=== PATIENT | female | born 1930 | race Caucasian/White ===

== ENCOUNTER 2016-10-01 14:39 | Emergency (ER) | payer OTHER ==
[2016-10-01 15:11] VITALS: BP 140/70; PULSE 87; TEMP 97.7; BMI 27.4
[2016-10-01] MEDS ORDERED: ASPIRIN 81 MG CHEWABLE TABLETS PO ONE (15:12)
--- NOTE | 2016-10-01 15:15 | PDOC ---
Rapid Medical Evaluation Time Seen by Provider: 10/01/16 15:09 Medical Evaluation: Allergies Allergy/AdvReac Type Severity Reaction Status Date / Time No Known Allergies Allergy Verified 01/07/16 17:57 10/01/16 15:[address] Valentin office for new notesd EKG changes- no chest pain / palpitation/ SOB/ diaphoresis 07/29 NSR with no changes. Todays showed at office= RBBB and Twave changes. VSS, assymptomatic. 10/01/16 15:14
[2016-10-01 16:01] LABS: BASOPHIL 0.8 % (0-2.0); EOSINOPHIL 1.7 % (0-4.5); MCH 31.8 pg (25.7-33.7); MCHC 33.6 g/dl (32.0-36.0); MEAN CELL VOLUME 94.7 fl (80-96); MEAN PLT VOLUME 9.2 fl (7.5-11.1); NEUTROPHILS 59.2 % (42.8-82.8); PLATELET COUNT 208 K/MM3 (134-434); WHITE BLOOD COUNT 9.6 K/mm3 (4.0-10.0)
[2016-10-01 16:16] LABS: ALBUMIN 4.3 g/dl (3.4-5.0); ANION GAP 12 (8-16); BILIRUBIN,TOTAL 0.2 mg/dL (0.2-1.0); CALCIUM 9.4 mg/dL (8.5-10.1); CO2 29 mmol/L (21-32); CREATININE 0.8 mg/dL (0.55-1.02); GLUCOSE,RANDOM 132 mg/dL (74-106); SGOT/AST 37 U/L (15-37); SGPT/ALT 53 U/L (12-78); TOT PROT 7.6 g/dl (6.4-8.2)
[2016-10-01 16:19] LABS: ALK PHOS 97 U/L (45-117); TROPONIN I < 0.02 ng/ml (0.00-0.05)
[2016-10-01 16:44] LABS: URINE APPEARANCE CLEAR; URINE BILIRUBIN NEGATIVE (NEGATIVE); URINE BLOOD NEGATIVE (NEGATIVE); URINE COLOR STRAW; URINE GLUCOSE (UA) NEGATIVE (NEGATIVE); URINE KETONE NEGATIVE (NEGATIVE); URINE LEUK ESTERASE 1+ (NEGATIVE); URINE NITRITE NEGATIVE (NEGATIVE); URINE PROTEIN NEGATIVE (NEGATIVE); URINE UROBILINOGEN NEGATIVE E.U./dl (0.2-1.0)
--- NOTE | 2016-10-01 17:14 | PDOC ---
History of Present Illness <Guido Rocha - Last Filed: 10/01/16 17:51> - General History Source: Patient, Family, Primary Care Provider Exam Limitations: No Limitations <Franko Sood - Last Filed: 10/01/16 18:05> - General Stated Complaint: (PCP SENT) EVALUATION Time Seen by Provider: 10/01/16 15:09 - History of Present Illness Initial Comments: 10/01/16 17:32 The patient is a 86 year old female presenting with her family, with a significant past medical history of diabetes, HTN and HLD, who presents to the emergency department with EKG changes onset today. The patient was at her PMDs office getting prepped for cataracts surgery on 10/14/2016, when an EKG showed changes from her prior EKG on 07/2016. On 07/2016 the EKG showed NSR with no changes. Today at office showed at RBBB and Twave changes, VSS, assymptomatic. The patient denies chest pain, palpitations, shortness of breath, headache and dizziness. Denies fever, chills, nausea, vomit, diarrhea and constipation. Denies dysuria, frequency, urgency and hematuria. Allergies: None Past surgical history: Left breast cyst removal Social history: No alcohol, tobacco or drug use PCP - Dr. Arthur Raygoza (Franko Sood) Past History - Past Medical History Diabetes: Yes HTN: Yes Hypercholesterolemia: Yes - Psycho/Social/Smoking Cessation Hx Anxiety: No Suicidal Ideation: No Smoking History: Never smoked Hx Alcohol Use: No Drug/Substance Use Hx: No Substance Use Type: None <Guido Rocha - Last Filed: 10/01/16 17:51> <Franko Sood - Last Filed: 10/01/16 18:05> - Past Medical History Allergies/Adverse Reactions: Allergies Allergy/AdvReac Type Severity Reaction Status Date / Time No Known Allergies Allergy Verified 10/01/16 15:11 Home Medications: Ambulatory Orders Amlodipine Besylate [Norvasc -] 0 mg PO DAILY 01/07/16 Atorvastatin Ca [Lipitor] 0 mg PO HS 01/07/16 Carboxymethylcellulose Sodium [Lubricant Eye Drops] 30 ml OS PRN #1 drops Eye Patch 1 each MC HS #1 each 01/07/16 Furosemide [Lasix -] 0 mg PO DAILY 01/07/16 Losartan Potassium [Cozaar] 0 mg PO DAILY 01/07/16 Prednisone [Deltasone -] 60 mg PO DAILY #12 tablet 01/07/16 Review of Systems <Natali Rochais - Last Filed: 10/01/16 17:51> - Review of Systems Able to Perform ROS?: Yes <Franko Sood - Last Filed: 10/01/16 18:05> - Review of Systems Comments:: 10/01/16 17:32 GENERAL/CONSTITUTIONAL: No fever or chills. No weakness. HEAD, EYES, EARS, NOSE AND THROAT: No change in vision. No ear pain or discharge. No sore throat. CARDIOVASCULAR: No chest pain or shortness of breath RESPIRATORY: No cough, wheezing, or hemoptysis. GASTROINTESTINAL: No nausea, vomiting, diarrhea or constipation. GENITOURINARY: No dysuria, frequency, or change in urination. MUSCULOSKELETAL: No joint or muscle swelling or pain. No neck or back pain. SKIN: No rash NEUROLOGIC: No headache, vertigo, loss of consciousness, or change in strength/ sensation. ENDOCRINE: No increased thirst. No abnormal weight change HEMATOLOGIC/LYMPHATIC: No anemia, easy bleeding, or history of blood clots. ALLERGIC/IMMUNOLOGIC: No hives or skin allergy. (Franko Sood) *Physical Exam <JosefinaGuido - Last Filed: 10/01/16 17:51> <Franko Sood - Last Filed: 10/01/16 18:05> - Vital Signs Last Vital Signs Temp Pulse Resp BP Pulse Ox 97.7 F 87 20 140/70 96 10/01/16 15:06 10/01/16 15:06 10/01/16 15:06 10/01/16 15:06 10/01/16 15:06 - Physical Exam Comments: 10/01/16 17:32 GENERAL: Awake, alert, and fully oriented, in no acute distress HEAD: No signs of trauma, normocephalic, atraumatic EYES: PERRLA, EOMI, sclera anicteric, conjunctiva clear ENT: Auricles normal inspection, hearing grossly normal, nares patent, oropharynx clear without exudates. Moist mucosa NECK: Normal ROM, supple, no lymphadenopathy, JVD, or masses LUNGS: No distress, speaks full sentences, clear to auscultation bilaterally HEART: Regular rate and rhythm, normal S1 and S2, no murmurs, rubs or gallops, peripheral pulses normal and equal bilaterally. ABDOMEN: Soft, nontender, normoactive bowel sounds. No guarding, no rebound. No masses EXTREMITIES: Normal inspection, Normal range of motion, no edema. No clubbing or cyanosis. NEUROLOGICAL: Cranial nerves II through XII grossly intact. Normal speech, normal gait, no focal sensorimotor deficits SKIN: Warm, Dry, normal turgor, no rashes or lesions noted. (Franko Sood) Heart Score/ECG Review #1 ECG reviewed & interpreted by me at: 18:04 <Franko Sood - Last Filed: 10/01/16 18:05> #1 10/01/16 15:26 Ventricular rate: 82 bpm Normal sinus rhythm Incomplete right bundle branch block (Franko Sood) ED Treatment Course - LABORATORY CBC & Chemistry Diagram: 10/01/16 15:45 10/01/16 15:45 <Guido Rocha - Last Filed: 10/01/16 17:51> - LABORATORY CBC & Chemistry Diagram: 10/01/16 15:45 10/01/16 15:45 <Franko Sood - Last Filed: 10/01/16 18:05> - ADDITIONAL ORDERS Additional order review: Laboratory Results 10/01/16 10/01/16 10/01/16 15:49 15:45 15:45 INR Cancelled Sodium 139 Potassium 3.8 Chloride 98 Carbon Dioxide 29 Anion Gap 12 BUN 22 H D Creatinine 0.8 D Creat Clearance w eGFR > 60 Random Glucose 132 H Calcium 9.4 Magnesium 2.0 Total Bilirubin 0.2 D AST 37 D ALT 53 D Alkaline Phosphatase 97 D Creatine Kinase 68 Troponin I < 0.02 Total Protein 7.6 Albumin 4.3 Urine Color Straw Urine Appearance Clear Urine pH 5.0 Ur Specific Concepcion 1.010 Urine Protein Negative Urine Glucose (UA) Negative Urine Ketones Negative Urine Blood Negative Urine Nitrite Negative Urine Bilirubin Negative Urine Urobilinogen Negative Ur Leukocyte Esterase 1+ H 10/01/16 15:45 RBC 4.46 MCV 94.7 MCHC 33.6 RDW 13.0 MPV 9.2 Neutrophils % 59.2 Lymphocytes % 29.8 Monocytes % 8.5 Eosinophils % 1.7 Basophils % 0.8 - Medications Given in the ED: ED Medications Discontinued Medications Generic Name Dose Route Start Last Admin Trade Name Roseline PRN Reason Stop Dose Admin Aspirin 162 mg 10/01/16 15:12 10/01/16 17:48 Asa - PO 10/01/16 15:13 162 mg ONCE ONE Administration Medical Decision Making <Guido Rocha - Last Filed: 10/01/16 17:51> <Franko Sood - Last Filed: 10/01/16 18:05> - Medical Decision Making 10/01/16 18:00 Patient is an 86-year-old female with history of diabetes, hypertension, hyperlipidemia who was referred to the ER for nonspecific EKG changes without associated symptomatology. Patient denies chest pain/shortness of breath/ diaphoresis/dyspnea on exertion/PND/orthopnea/lower extremity edema. In the ER, patient is asymptomatic and resting comfortably. I do not suspect ACS or PE at this time. I discussed the case with Dr. Valentin and he agrees. Will discharge. (Guido Rocha) 10/01/16 17:33 Dr. Posada was consulted regarding the patient at 5:24pm [phone] (Franko Sood) *DC/Admit/Observation/Transfer <Guido Rocha - Last Filed: 10/01/16 17:51> <Franko Sood - Last Filed: 10/01/16 18:05> Diagnosis at time of Disposition: Nonspecific ST-T wave electrocardiographic changes - Discharge Dispostion Disposition: HOME Condition at time of disposition: Stable - Referrals Referrals: Arthur Posada MD [Primary Care Provider] - - Patient Instructions Printed Discharge Instructions: Electrocardiogram - Attestations Scribe Attestion: 10/01/16 17:32 Documentation prepared by Franko Sood, acting as coroner/medical examiner for Guido Rocha MD (Franko Sood) Physician Attestion: 10/01/16 17:51 The documentation was prepared by the scribe under my direct supervision. I have reviewed the documentation which correctly represents the findings, medical decision-making and critical action taken by me. (Guido Rocha)
[2016-10-01] MEDS ORDERED: ASPIRIN 81 MG CHEWABLE TABLETS ONE (17:46)
[2016-10-01 19:42] LABS: URINE MUCUS RARE; URINE RBC 1 /hpf (0-3); URINE WBC 6 /hpf (3-5)
--- NOTE | 2016-10-02 17:09 | EKG ---
Test Reason : Blood Pressure : / mmHG Vent. Rate : 083 BPM Atrial Rate : 083 BPM P-R Int : 152 ms QRS Dur : 110 ms QT Int : 398 ms P-R-T Axes : 045 044 -05 degrees QTc Int : 467 ms POOR DATA QUALITY, INTERPRETATION MAY BE ADVERSELY AFFECTED NORMAL SINUS RHYTHM INCOMPLETE RIGHT BUNDLE BRANCH BLOCK T WAVE ABNORMALITY, CONSIDER ANTERIOR ISCHEMIA ABNORMAL ECG WHEN COMPARED WITH ECG OF 29-OCT-2005 21:08, INCOMPLETE RIGHT BUNDLE BRANCH BLOCK IS NOW PRESENT Confirmed by MÓNICA GARCIA MD ([id number]) on 10/02/2016 5:09:29 PM Referred By: Confirmed By:MÓNICA GARCIA MD
== END 2016-10-01 17:55 | disposition home or self-care (01) ==
LOC: JER 14:39
DX: R94.31 Abnormal electrocardiogram [ECG] [EKG] (principal); E11.9 Type 2 diabetes mellitus without complications; I10 Essential (primary) hypertension; E78.5 Hyperlipidemia, unspecified
CPT/HCPCS: 36415; 80053; 81003; 81015; 82550; 83735; 84484; 85025; 93005; 93010; 99282-25

== ENCOUNTER 2016-12-05 12:02 | Inpatient (IN) | payer OTHER ==
--- NOTE | 2016-12-05 14:12 | PDOC ---
History of Present Illness - General Chief Complaint: Respiratory Stated Complaint: COUGH, PAIN (PCP SENT) - History of Present Illness Initial Comments: 12/05/16 14:10 86 yo F with h/o HTN DM here wtih coughing started last night. no fever. does have chest pain with coughing. has nausea, no vomiting. no fever, does have chills. no diarreha. no other complaints. cough productive of yellow phlegm. no mod factors. on exam awake, alert. bilat lung wheezing and crackles. rhonchorous breath sounds. heart RRR no mr/g/. abd soft NT ND. ext WWP no edema. plan: differential pna, bronchitis. anemia, sepsis. plan labs ekg cxr duoneb. reassess. 12/05/16 14:39 Past History - Past Medical History Allergies/Adverse Reactions: Allergies Allergy/AdvReac Type Severity Reaction Status Date / Time No Known Allergies Allergy Verified 12/05/16 12:04 Home Medications: Ambulatory Orders Amlodipine Besylate [Norvasc -] 0 mg PO DAILY 01/07/16 Atorvastatin Ca [Lipitor] 0 mg PO HS 01/07/16 Carboxymethylcellulose Sodium [Lubricant Eye Drops] 30 ml OS PRN #1 drops Eye Patch 1 each MC HS #1 each 01/07/16 Furosemide [Lasix -] 0 mg PO DAILY 01/07/16 Losartan Potassium [Cozaar] 0 mg PO DAILY 01/07/16 Prednisone [Deltasone -] 60 mg PO DAILY #12 tablet 01/07/16 Asthma: No Diabetes: Yes (NIDDM) HTN: Yes Hypercholesterolemia: Yes - Psycho/Social/Smoking Cessation Hx Anxiety: No Suicidal Ideation: No Smoking History: Never smoked Have you smoked in the past 12 months: No Information on smoking cessation initiated: No Hx Alcohol Use: No Drug/Substance Use Hx: No Substance Use Type: None Review of Systems - Review of Systems Constitutional: No: Chills, Diaphoresis, Fever Respiratory: Yes: Cough, Shortness of Breath, Wheezing, Productive cough Cardiac (ROS): Yes: Chest Pain. No: Edema, Irregular Heart Rate : No: Burning, Dysuria, Discharge, Pain, Urgency Musculoskeletal: No: Back Pain All Other Systems: Reviewed and Negative *Physical Exam - Vital Signs Last Vital Signs Temp Pulse Resp BP Pulse Ox 98.0 F 86 18 146/68 100 12/05/16 12:04 12/05/16 12:04 12/05/16 12:04 12/05/16 12:04 12/05/16 12:04 - Physical Exam General Appearance: Yes: Nourished HEENT: positive: Normal Voice Neck: positive: Trachea midline Respiratory/Chest: positive: Wheezing, Other (bilateral wheezing, crackles at bases). negative: Respiratory Distress Cardiovascular: positive: Regular Rhythm, Regular Rate, S1, S2. negative: Edema , JVD Vascular Pulses: Dorsalis-Pedis (R): 2+, Doralis-Pedis (L): 2+ Gastrointestinal/Abdominal: positive: Normal Bowel Sounds. negative: Tender Musculoskeletal: negative: CVA Tenderness Integumentary: positive: Normal Color, Dry, Warm Neurologic: positive: Fully Oriented, Alert, Normal Mood/Affect ED Treatment Course - LABORATORY CBC & Chemistry Diagram: 12/05/16 16:06 12/05/16 16:06 Medical Decision Making - Medical Decision Making 12/05/16 14:39 86 yo F with h/o HTN DM here wtih coughing started last night. no fever. does have chest pain with coughing. has nausea, no vomiting. no fever, does have chills. no diarreha. no other complaints. cough productive of yellow phlegm. no mod factors. on exam awake, alert. bilat lung wheezing and crackles. rhonchorous breath sounds. heart RRR no mr/g/. abd soft NT ND. ext WWP no edema. plan: differential pna, bronchitis. anemia, sepsis. plan labs ekg cxr duoneb. reassess. 12/05/16 18:28 pt cxr negative. wbc normal. but lactate elevated 3.7. pt improved clinically with nebs. oxygen sat improved from 92% to 97%. d/w dr. Diaz, will admit pt. *DC/Admit/Observation/Transfer Diagnosis at time of Disposition: Bronchitis, Hypoxia - Discharge Dispostion Admit: Yes - Referrals Referrals: Arthur Posada MD [Primary Care Provider] -
[2016-12-05] MEDS ORDERED: ALBUTEROL SO4 2.5/IPRATROPIUM 0.5 INH SOL 3 ML VIAL.NEB. NEB ONE ×2 (14:17→14:23)
[2016-12-05] MEDS ORDERED: LEVOFLOXACIN 750 MG IVPB 150 ML IVPB ONE ×2 (15:51→16:31)
[2016-12-05 16:48] LABS: URINE APPEARANCE CLEAR; URINE BILIRUBIN NEGATIVE (NEGATIVE); URINE BLOOD NEGATIVE (NEGATIVE); URINE COLOR COLORLESS; URINE GLUCOSE (UA) NEGATIVE (NEGATIVE); URINE KETONE NEGATIVE (NEGATIVE); URINE NITRITE NEGATIVE (NEGATIVE); URINE PROTEIN NEGATIVE (NEGATIVE); URINE UROBILINOGEN NEGATIVE E.U./dl (0.2-1.0)
[2016-12-05 16:53] LABS: BASOPHIL 0.8 % (0-2.0); EOSINOPHIL 2.6 % (0-4.5); MCH 30.7 pg (25.7-33.7); MCHC 32.5 g/dl (32.0-36.0); MEAN CELL VOLUME 94.4 fl (80-96); MEAN PLT VOLUME 9.3 fl (7.5-11.1); NEUTROPHILS 43.9 % (42.8-82.8); PLATELET COUNT 195 K/MM3 (134-434); RDW 12.6 % (11.6-15.6); URINE LEUK ESTERASE TRACE (NEGATIVE); WHITE BLOOD COUNT 4.2 K/mm3 (4.0-10.0)
[2016-12-05 16:56] LABS: URINE BACTERIA RARE /hpf (NONE SEEN); URINE RBC <1 /hpf (0-3); URINE WBC 4 /hpf (3-5)
[2016-12-05 17:26] LABS: ANION GAP 13 (8-16); CO2 27 mmol/L (21-32); COCKROFT - GAULT 70.6775; CREATININE 0.7 mg/dL (0.55-1.02); GLUCOSE,RANDOM 122 mg/dL (74-106); SGOT/AST 42 U/L (15-37); SGPT/ALT 57 U/L (12-78)
[2016-12-05 17:28] LABS: ALK PHOS 100 U/L (45-117); BILIRUBIN,TOTAL 0.3 mg/dL (0.2-1.0); TOT PROT 7.4 g/dl (6.4-8.2)
[2016-12-05] MEDS ORDERED: SODIUM CHLORIDE 0.9% 1000 ML INFUS.BAG IV ONE (17:46)
[2016-12-06] MEDS: ALBUTEROL SO4 0.083% IH SOL 2.5 MG/3 ML VIAL.NEB. NEB SCH ×4 (00:51→22:42)
[2016-12-06] MEDS ORDERED: amLODIPine BESYLATE 5 MG TABLET (FP) PO ONE (02:45)
[2016-12-06 10:20] LABS: ALBUMIN 3.7 g/dl (3.4-5.0); ALK PHOS 91 U/L (45-117); ANION GAP 8 (8-16); BILIRUBIN,TOTAL 0.4 mg/dL (0.2-1.0); CO2 28 mmol/L (21-32); CREATININE 0.6 mg/dL (0.55-1.02); GLUCOSE,RANDOM 101 mg/dL (74-106); SGOT/AST 36 U/L (15-37); SGPT/ALT 47 U/L (12-78); TOT PROT 6.7 g/dl (6.4-8.2)
[2016-12-06] MEDS: LEVOFLOXACIN 500 MG IVPB 100 ML IVPB SCH (11:36)
[2016-12-06] MEDS: METOPROLOL SUCCINATE 25 MG TAB.SR.24H (FP) PO SCH (11:37)
[2016-12-06] MEDS: VALSARTAN 160 MG TABLET (UD) PO SCH (11:37)
[2016-12-06] MEDS ORDERED: PNEUMOC 13-VAL CONJ-DIP CRM/PF 0.5 ML DISP.SYRIN IM ONE (12:00)
--- NOTE | 2016-12-06 14:26 | HP ---
Admitting History and Physical - Admission Chief Complaint: Cough and wheezing History of Present Illness: 86 y/o hyspanic female who developed severe cough and wheezing and could not sleep due to constant cough.She was examined in my office lungs showed bilateral rales and occasional wheezing and was referred to ED. She was treated with IV Levaquin and given inhalation treatment. She is a known diabetic and hypertensive. History Source: Patient Limitations to Obtaining History: No Limitations - Past Medical History USER INTERFACE ENGINEER: Yes: Other (Lyons's palsy) Cardiovascular: Yes: HTN, Hyperlipdemia Musculoskeletal: Yes: Other (fracture left humeral head) Endocrine: Yes: Diabetes Mellitus - Past Surgical History Past Surgical History: Yes: Breast Biopsy - Smoking History Smoking history: Never smoked Have you smoked in the past 12 months: No - Alcohol/Substance Use Hx Alcohol Use: No - Social History Usual Living Arrangement: Yes: With Spouse ADL: Independent History of Recent Travel: No Home Medications - Allergies Allergies/Adverse Reactions: Allergies Allergy/AdvReac Type Severity Reaction Status Date / Time No Known Allergies Allergy Verified 12/05/16 12:04 - Home Medications Home Medications: Ambulatory Orders Amlodipine Besylate [Norvasc -] 5 mg PO DAILY 01/07/16 Atorvastatin Ca [Lipitor] 10 mg PO HS 01/07/16 Aspirin [Aspirin EC] 81 mg PO DAILY 12/06/16 Losartan/Hydrochlorothiazide [Losartan-Hctz 100-12.5 mg Tab] 1 each PO DAILY Metformin HCl [Metformin HCl ER] 500 mg PO BID 12/06/16 Metoprolol Succinate [Toprol Xl -] 25 mg PO DAILY 12/06/16 Review of Systems - Review of Systems Eyes: reports: No Symptoms HENT: reports: No Symptoms Neck: reports: No Symptoms Cardiovascular: reports: No Symptoms Respiratory: reports: Cough, Wheezing Gastrointestinal: reports: No Symptoms Genitourinary: reports: No Symptoms Breasts: reports: No Symptoms Reported Musculoskeletal: reports: No Symptoms Integumentary: reports: No Symptoms Neurological: reports: No Symptoms Endocrine: reports: No Symptoms Hematology/Lymphatic: reports: No Symptoms Psychiatric: reports: No Symptoms Physical Examination Vital Signs: Vital Signs Temperature 98.2 F 12/06/16 09:49 Pulse Rate 82 12/06/16 09:49 Respiratory Rate 18 12/06/16 09:49 Blood Pressure 156/64 12/06/16 09:49 O2 Sat by Pulse Oximetry (%) 94 L 12/06/16 02:00 Constitutional: Yes: No Distress, Calm Eyes: Yes: Conjunctiva Clear, EOM Intact HENT: Yes: WNL Neck: Yes: Supple Cardiovascular: Yes: Regular Rate and Rhythm, S1, S2 Respiratory: Yes: Regular, Rales Gastrointestinal: Yes: Normal Bowel Sounds, Soft Renal/: Yes: WNL Breast(s): Yes: WNL Musculoskeletal: Yes: WNL Extremities: Yes: WNL Edema: No Peripheral Pulses WNL: Yes Integumentary: Yes: WNL Neurological: Yes: Alert, Oriented ...Motor Strength: WNL Psychiatric: Yes: Alert, Oriented Labs: CBC, BMP 12/06/16 07:30 Imaging - Results Chest X-ray: Report Reviewed, Image Reviewed EKG: Pending Problem List - Problems (1) Bronchitis Assessment/Plan: Being treated with IV Levaquin and inhalation treatment and improving Code(s): J40 - BRONCHITIS, NOT SPECIFIED ACUTE OR CHRONIC (2) Diabetes Assessment/Plan: On admission lactic acid was elevated and Metformin was D/C Will observe off oral agents Code(s): E11.9 - TYPE 2 DIABETES MELLITUS WITHOUT COMPLICATIONS (3) Hypertension complicating diabetes Code(s): E11.59 - 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 Will continue present regimen next 24 hours and discharge if stable. Diabetes: FBS was 101 today off Metformin.As lactic acid was elevated on admission will switch to PO Glipizide as out patient
[2016-12-06] MEDS ORDERED: ATORVASTATIN CA 10 MG TABLET (FP) PO SCH (22:00)
[2016-12-07] MEDS: ALBUTEROL SO4 0.083% IH SOL 2.5 MG/3 ML VIAL.NEB. NEB SCH ×2 (06:37→15:11)
[2016-12-07] MEDS: LEVOFLOXACIN 500 MG IVPB 100 ML IVPB SCH (09:20)
[2016-12-07] MEDS: VALSARTAN 160 MG TABLET (UD) PO SCH (09:20)
[2016-12-07] MEDS: METOPROLOL SUCCINATE 25 MG TAB.SR.24H (FP) PO SCH (09:20)
[2016-12-07] MEDS ORDERED: amLODIPine BESYLATE 5 MG TABLET (FP) PO SCH (10:00)
[2016-12-07 14:33] VITALS: BP 135/50; PULSE 85; TEMP 98.4
--- NOTE | 2016-12-07 15:39 | DS ---
Physical Examination Vital Signs: Vital Signs Temperature 98.4 F 12/07/16 14:31 Pulse Rate 85 12/07/16 14:31 Respiratory Rate 22 12/07/16 14:31 Blood Pressure 135/50 12/07/16 14:31 O2 Sat by Pulse Oximetry (%) 96 12/06/16 22:00 Findings/Remarks: Continue to cough but without any wheezing or fever or chest pain Patient seen and examined Constitutional: Yes: No Distress, Calm Eyes: Yes: Conjunctiva Clear, EOM Intact HENT: Yes: WNL Neck: Yes: Supple Cardiovascular: Yes: Regular Rate and Rhythm, S1, S2 Respiratory: Yes: Regular, CTA Bilaterally Gastrointestinal: Yes: Normal Bowel Sounds, Soft Renal/: Yes: WNL Breast(s): Yes: WNL Musculoskeletal: Yes: WNL Extremities: Yes: WNL Edema: No Peripheral Pulses WNL: Yes Integumentary: Yes: WNL Neurological: Yes: Alert, Oriented ...Motor Strength: WNL Psychiatric: Yes: Alert, Oriented Labs: CBC, BMP 12/06/16 07:30 Discharge Summary Reason For Visit: HYPOXIA; BRONCHITIS Current Active Problems Bronchitis (Acute) Diabetes (Acute) Hyperlipidemia (Acute) Hypertension complicating diabetes (Acute) Hypoxia (Acute) Hospital Course: Known diabetic who came to the emergency with persistent cough and wheezing and could not sleep all night due to persistent cough. She had been started on Zithromax as outpatient but still continued to be symptomatic.In the ED she she was found to have minimakl wheezing, without leukocytosis and was started on IV Levaquin and inhalation treatment and was admitted. She is a known diabetic and hypertensive. She continued to improve and was discharged on PO Levaquin. Metformin was discontinued as the lactic acid was elevated during admission . Her BGM was in the 150 range and she is being started on Glimepiride o.5 mg and will be titrated upward. She will be followed in my office. Condition: Improved - Instructions Referrals: Arthur Posada MD [Primary Care Provider] - - Home Medications Comprehensive Discharge Medication List: Ambulatory Orders Amlodipine Besylate [Norvasc -] 5 mg PO DAILY 01/07/16 Atorvastatin Ca [Lipitor] 10 mg PO HS 01/07/16 Aspirin [Aspirin EC] 81 mg PO DAILY 12/06/16 Losartan/Hydrochlorothiazide [Losartan-Hctz 100-12.5 mg Tab] 1 each PO DAILY Metoprolol Succinate [Toprol XL -] 25 mg PO DAILY 12/06/16 Amlodipine Besylate [Norvasc -] 5 mg PO DAILY tablet 12/07/16 Atorvastatin Ca [Lipitor] 10 mg PO HS tablet 12/07/16
--- NOTE | 2016-12-07 22:26 | EKG ---
Test Reason : Blood Pressure : / mmHG Vent. Rate : 084 BPM Atrial Rate : 084 BPM P-R Int : 154 ms QRS Dur : 112 ms QT Int : 382 ms P-R-T Axes : 062 062 -11 degrees QTc Int : 451 ms POOR DATA QUALITY, INTERPRETATION MAY BE ADVERSELY AFFECTED NORMAL SINUS RHYTHM INCOMPLETE RIGHT BUNDLE BRANCH BLOCK NONSPECIFIC T WAVE ABNORMALITY ABNORMAL ECG WHEN COMPARED WITH ECG OF 01-OCT-2016 15:26, NO SIGNIFICANT CHANGE WAS FOUND Confirmed by SARTHAK CARLSON MD ([id number]) on 12/07/2016 10:26:22 PM Referred By: Confirmed By:SARTHAK CARLSON MD
== END 2016-12-07 16:39 | disposition home or self-care (01) | DRG 202 ==
LOC: JER 12:02 → JERBED 18:27 → J5S 12-06 01:13
PROVIDERS: ADMIT Internal Medicine Hematology & Oncology; ATTEND Internal Medicine Hematology & Oncology
DX: J20.9 Acute bronchitis, unspecified (principal); E87.2 Acidosis; E11.9 Type 2 diabetes mellitus without complications; E78.5 Hyperlipidemia, unspecified; I10 Essential (primary) hypertension
CPT/HCPCS: 36415; 71020-TC; 80053; 81003; 81015; 83605; 85025; 86157; 87040; 87254; 87804; 90670; 93005; 93010; 94640; 99285-25

== ENCOUNTER 2018-07-08 10:00 | Emergency (ER) | payer OTHER ==
[2018-07-08 10:23] VITALS: TEMP 98.7; BMI 31.1
--- NOTE | 2018-07-08 10:42 | PDOC ---
History of Present Illness - General Chief Complaint: Cold Symptoms Stated Complaint: COUGH Time Seen by Provider: 07/08/18 10:42 History Source: Patient Exam Limitations: No Limitations - History of Present Illness Initial Comments: 07/08/18 11:10 Ms Gleason is a 87 YOF with h/o HTN, HLD, DM2 p/w 1 week history of chest cold, nasal congestion and productive cough. Initially with fevers, since resolved Tolerating PO intake. No travel history. Initially sick contact +daughter with URI sx ~3 weeks ago. PMD rxd antibiotic x 1 week course, which she finished on 07/06/18, without relief. Has been taking decongestant with some relief. No cp, sob, n/v/d, urinary sx, leg swelling or pain. Constitutional: no fevers or chills. HEENT: no headache or dizziness. +cough/congestion. +ear aches. No neck pain or stiffness. No sore throat or odynophagia. CVS: no cp or syncope. Resp: no sob.+productive cough. Gastrointestinal: no abdominal pain, nausea or vomiting. Genitourinary: no urinary sx, hematuria. MUSCULOSKELETAL: No joint pain and swelling. No neck or back pain. SKIN: no redness or skin changes, no discharge, no rash. No wounds. Hematologic: no easy bruising/bleeding. NEUROLOGIC: No headache, dizziness, LOC or altered mental status. No weakness, numbness or tingling. Allergic/Immunologic: no allergies All other systems reviewed and negative, or as documented in HPI. General: Well appearing, awake and alert, NAD. HEENT: NCAT, PERRL, EOMI, clear conjunctiva, anicteric, moist mucus membranes, clear oropharynx, no oral lesions.. T.M.s clear bilaterally. Neck: neck supple, FROM Resp: +left basilar crackles with inspiration. +coughing, normal and even respirations, no respiratory distress CVS: RRR, no murmurs, 2+ peripheral pulses throughout, no peripheral edema Abdomen: soft, NTND, no peritoneal signs. Back: nontender, normal inspection and ROM MSK: 1+ bilateral edema, BAUTISTA x4, ROM intact. No clubbing or cyanosis. normal bulk and tone. Extremities: no calf tenderness Neuro: alert, oriented appropriately Skin: warm and well perfused, cap refill <2 sec, normal color Past History - Past Medical History Allergies/Adverse Reactions: Allergies Allergy/AdvReac Type Severity Reaction Status Date / Time No Known Allergies Allergy Verified 12/05/16 12:04 Home Medications: Ambulatory Orders Aspirin [Aspirin EC] 81 mg PO DAILY 12/06/16 Metoprolol Succinate [Toprol XL -] 50 mg PO BID 12/06/16 Amlodipine Besylate [Norvasc -] 5 mg PO DAILY tablet 12/07/16 Atorvastatin Ca [Lipitor] 10 mg PO HS tablet 12/07/16 Albuterol Sulfate Inhaler - [Ventolin HFA Inhaler -] 1 - 2 inh PO Q4H PRN #1 inhaler 07/08/18 Glimepiride [Amaryl -] 1 mg PO DAILY 07/08/18 Guaifenesin/Dextromethorphan [Diabetic Tussin Dm Max-Str Liq] 2 tsp PO Q4H PRN 07/08/18 Valsartan/Hydrochlorothiazide [Valsartan-Hctz 160-12.5 mg Tab] 1 each PO DAILY 07/08/18 Asthma: No COPD: No Diabetes: Yes (NIDDM) HTN: Yes Hypercholesterolemia: Yes - Suicide/Smoking/Psychosocial Hx Smoking History: Never smoked Have you smoked in the past 12 months: No Information on smoking cessation initiated: No Hx Alcohol Use: No Drug/Substance Use Hx: No Substance Use Type: None *Physical Exam - Vital Signs Last Vital Signs Temp Pulse Resp BP Pulse Ox 98.7 F 90 20 166/61 94 L 07/08/18 10:21 07/08/18 10:21 07/08/18 10:21 07/08/18 10:21 07/08/18 10:21 Moderate Sedation - Procedure Monitoring Vital Signs: Procedure Monitoring Vital Signs Temperature 98.7 F 07/08/18 10:21 Pulse Rate 90 07/08/18 10:21 Respiratory Rate 20 07/08/18 10:21 Blood Pressure 166/61 07/08/18 10:21 O2 Sat by Pulse Oximetry (%) 94 L 07/08/18 10:21 Heart Score/ECG Review - ECG Impressions Normal ECG: No Comment:: 07/08/18 11:41 EKG normal sinus rhythm, no interval abnormalities, narrow QRS, ST and T wave segments and morphology normal. Nonspecific T wave abnormalities with TWI in anterior and inferior leads, but unchanged from previous, limited due to some artifact. Medical Decision Making - Medical Decision Making 07/08/18 13:31 HPI as documented EKG normal sinus rhythm, no interval abnormalities, narrow QRS, ST and T wave segments and morphology normal. Nonspecific T wave abnormalities with TWI in anterior and inferior leads, but unchanged from previous, limited due to some artifact. No acute ischemic findings. ED course: duoneb x1, with relief. CXR clear, no pna. No abx indicated. Repeat VS normal, SPO2 normalized, without respiratory distress. No fever. most likely viral illness out of window for tamiflu benefit, so no flu testing indicated. nontoxic appearing, doubt serious emergent pathology. PMD called Dr Valentin, updated with results. ] rx home with albuterol inhaler Q4-6 hour as needed for cough. Dispo: discharge in stable condition. PCP followup, return precautions discussed. Family and pt made aware of impression and plan. 07/08/18 13:31 *DC/Admit/Observation/Transfer Diagnosis at time of Disposition: URI (upper respiratory infection) Qualifiers: URI type: unspecified viral URI Qualified Code(s): J06.9 - Acute upper respiratory infection, unspecified - Discharge Dispostion Disposition: HOME Condition at time of disposition: Improved Decision to Admit order: No - Prescriptions Prescriptions: Albuterol Sulfate Inhaler - [Ventolin HFA Inhaler -] 1 - 2 inh PO Q4H PRN #1 inhaler PRN Reason: Cough - Referrals Referrals: Arthur Posada MD [Primary Care Provider] - - Patient Instructions Printed Discharge Instructions: DI for Acute Bronchitis, DI for Viral Upper Respiratory Infection -- Adult, DI for Common Cold Additional Instructions: you most likely have a common cold or upper respiratory tract infection antibiotic will not help you your Xray was negative for pneumonia or infection. salt water gargles and warm lemon tea is appropriate as well. minimize spread of infection given contagious nature, and cover your mouth and wash your hands adequately with soap and water. Stay well hydrated and rest. May use the albuterol inhaler every 4-6 hours as needed for cough and breathing to clear up your airways. Return precautions include respiratory distress, difficulty breathing, chest pain, lethargy, confusion, dehydration, high fevers or pain. follow up with your primary doctor. - Post Discharge Activity
[2018-07-08] MEDS ORDERED: ALBUTEROL SO4 2.5/IPRATROPIUM 0.5 INH SOL 3 ML VIAL.NEB. NEB ONE ×2 (11:04→11:26)
[2018-07-08 13:46] VITALS: BP 131/60; PULSE 86
--- NOTE | 2018-07-08 13:59 | EKG ---
Test Reason : Blood Pressure : / mmHG Vent. Rate : 088 BPM Atrial Rate : 088 BPM P-R Int : 000 ms QRS Dur : 108 ms QT Int : 376 ms P-R-T Axes : 061 053 -04 degrees QTc Int : 454 ms SINUS RHYTHM INCOMPLETE RIGHT BUNDLE BRANCH BLOCK NONSPECIFIC T WAVE ABNORMALITY ABNORMAL ECG Confirmed by JOSE VÁSQUEZ, MÓNICA ([id number]) on 07/08/2018 1:59:09 PM Referred By: Confirmed By:MÓNICA GARCIA MD
== END 2018-07-08 13:46 | disposition home or self-care (01) ==
LOC: JER 10:00
PROC: 3E0F7GC Introduction of Other Therapeutic Substance into Respiratory Tract, Via Natural or Artificial Opening (ICD-10-PCS; principal; 2018-07-08)
DX: J06.9 Acute upper respiratory infection, unspecified (principal); B97.89 Other viral agents as the cause of diseases classified elsewhere
CPT/HCPCS: 71046-TC-FY; 93005; 93010; 99282-25

== ENCOUNTER 2022-06-02 17:11 | Emergency (ER) | payer OTHER ==
[2022-06-02 18:40] VITALS: BP 150/76; PULSE 90; RESP 18; TEMP 98.1; BMI 26.6
[2022-06-02 22:54] LABS: HEMATOCRIT 43.5 % (32.4-45.2); HEMOGLOBIN 14.7 GM/dL (10.7-15.3); MCH 31.4 pg (25.7-33.7); MCHC 33.8 g/dl (32.0-36.0); MEAN CELL VOLUME 92.9 fl (80-96); MEAN PLT VOLUME 8.8 fl (7.5-11.1); PLATELET COUNT 263 10^3/uL (134-434); RBC 4.68 M/mm3 (3.60-5.2); RDW 12.9 % (11.6-15.6)
[2022-06-02 23:13] LABS: CALCIUM 9.4 mg/dL (8.5-10.1)
[2022-06-02 23:14] LABS: ALBUMIN 4.2 g/dl (3.4-5.0); BLOOD UREA NITROGEN 19.4 mg/dL (7-18)
[2022-06-02 23:17] LABS: CREATININE 0.8 mg/dL (0.55-1.3)
[2022-06-02 23:19] LABS: BILIRUBIN,TOTAL 0.6 mg/dL (0.2-1); TOT PROT 8.2 g/dl (6.4-8.2)
== END 2022-06-03 00:02 | disposition home or self-care (01) ==
LOC: JER 17:11
DX: R42 Dizziness and giddiness (principal)
CPT/HCPCS: 36415; 80053; 84484; 85027; 93005; 93010; 99284-25